=== PATIENT | female | born 1955 ===

== ENCOUNTER 2018-08-19 07:57 | Day surgery (SDC) | payer OTHER ==
[2016-11-30 11:53] VITALS: BMI 27.4
[2018-08-19] MEDS ORDERED: Lactated Ringer's 500 ML IV ONE (10:18)
--- NOTE | 2018-08-19 10:18 | CP.SDSHP ---
Same Day Surgery H & P - History Proposed Procedure: egd. colonoscopy Pre-Op Diagnosis: epigastric pain. heartburn. screening for colon cancer - Previous Medical/Surgical History Cardiac: Hypertension, Other (hyperlipidemia) Endocrine/Metabolic: Thyroid Disease Previous Surgical History: Breast cyst - Allergies Allergies: Allergies No Known Allergies Allergy (Verified 08/19/18 07:50) - Physical Exam Vital Signs: Vital Signs 08/19/18 07:58 Temperature 99 F Pulse Rate 71 Respiratory 19 Rate Blood Pressure 142/81 O2 Sat by Pulse 99 Oximetry Mental Status: Alert & Oriented x3 Neuro: WNL Heart: WNL Lungs: WNL GI: WNL - Impression Impression: epigastric pain. heartburn. screening for colon cancer Pt. Evaluated Today:Candidate for Anesthesia & Procedure: Yes - Date & Time Date: 08/19/18 Time: 10:18 Short Stay Discharge - Short Stay Discharge Admitting Diagnosis/Reason for Visit: SCREENING Disposition: HOME/ ROUTINE
[2018-08-19] MEDS ORDERED: Propofol 10 mg/ml Inj (20 ML) ONE (10:20)
[2018-08-19] MEDS ORDERED: Pantoprazole 40 mg EC Tab PO STA ×2 (10:27→11:33)
[2018-08-19 11:41] VITALS: RESP 18
[2018-08-19 11:53] VITALS: BP 118/71; PULSE 85; TEMP 97.9; O2SAT 98
== END 2018-08-19 11:45 | disposition home or self-care (01) ==
LOC: C.ENDO 07:57
PROVIDERS: ATTEND Internal Medicine Gastroenterology
DX: Z12.11 Encounter for screening for malignant neoplasm of colon (principal); R14.0 Abdominal distension (gaseous); K64.1 Second degree hemorrhoids; K21.0 Gastro-esophageal reflux disease with esophagitis; K29.50 Unspecified chronic gastritis without bleeding; B96.81 Helicobacter pylori [H. pylori] as the cause of diseases classified elsewhere; I10 Essential (primary) hypertension; E78.49 Other hyperlipidemia; K25.9 Gastric ulcer, unspecified as acute or chronic, without hemorrhage or perforation
CPT/HCPCS: 43239; 45380; 88305; 88312; 88342; J2001; J2704; J7120